=== PATIENT | male | born 1960 | race Caucasian/White ===

== ENCOUNTER 2016-11-10 10:04 | Observation (INO) | payer OTHER ==
[~2016-11-10] VITALS: Ht 167.6 cm; Wt 65.0 kg
[2016-11-10 10:08] VITALS: BP 134/75; PULSE 81; RESP 16; TEMP 98.1; O2SAT 99
[2016-11-10] MEDS ORDERED: ONDANSETRON HCL 4 MG/2 ML VIAL IV PUSH ONE ×2 (10:17→12:30)
[2016-11-10] MEDS ORDERED: PROPOFOL 200 MG/20 ML AMP IV ONE (10:17)
[2016-11-10] MEDS ORDERED: muscle relaxant (11:51)
[2016-11-10] MEDS ORDERED: ALPR1TAB3 PO (11:51)
[2016-11-10] MEDS ORDERED: MORPHINE SULFATE 4 MG/ML INJ IV PUSH ONE (12:30)
--- NOTE | 2016-11-10 12:41 | PD ---
HPI Chief Complaint: Injury Time Seen by Provider: 12:21 Travel History International Travel<30 days: No Contact w/Intl Traveler<30days: No Traveled to known affect area: No History of Present Illness HPI 55-year-old male complains of left index finger pain and swelling. Patient accidentally had the spray pain injury to the left index finger since yesterday. Patient was seen at [facility] and had an MRI done and referred to [place] to see hand surgeon. Patient states the pain is sharp pain localized to the left index finger. Patient denies any pain radiation. Patient is not sure of TD booster status. PFSH Past Medical History Tetanus Vaccination: Unknown Social History Alcohol Use: Yes Tobacco Use: Yes Allergies-Medications (Allergen,Severity, Reaction): Coded Allergies: Codeine (Verified Allergy, Severe, 11/10/16) Penicillin (Verified Allergy, Severe, 11/10/16) Reported Meds & Prescriptions Reported Meds & Active Scripts Active Reported [muscle relaxant] Alprazolam 1 Mg Tab 1 Mg PO Q6H PRN Review of Systems General / Constitutional: No: Fever Eyes: No: Visual changes HENT: No: Headaches Cardiovascular: No: Chest Pain or Discomfort Respiratory: No: Shortness of Breath Gastrointestinal: No: Abdominal Pain Genitourinary: No: Dysuria Musculoskeletal: No: Pain Skin: No Rash Neurologic: No: Weakness Psychiatric: No: Depression Endocrine: No: Polydipsia Hematologic/Lymphatic: No: Easy Bruising Physical Exam Narrative GENERAL: Well-nourished, well-developed patient. SKIN: Warm and dry. HEAD: Normocephalic. EYES: No scleral icterus. No injection or drainage. NECK: Supple, trachea midline. No JVD or lymphadenopathy. CARDIOVASCULAR: Regular rate and rhythm without murmurs, gallops, or rubs. RESPIRATORY: Breath sounds equal bilaterally. No accessory muscle use. GASTROINTESTINAL: Abdomen soft, non-tender, nondistended. MUSCULOSKELETAL: Patient has redness swelling tenderness left index finger. Limited range of motion on flexion and extension. Mild decrease in light touch sensation distal phalange left index finger. BACK: Nontender without obvious deformity. No CVA tenderness. Data Data Last Documented VS Vital Signs Date Time Temp Pulse Resp B/P Pulse Ox O2 Delivery O2 Flow Rate FiO2 11/10/16 10:08 98.1 81 16 134/75 99 Orders Electrocardiogram (11/10/16 12:26) Complete Blood Count With Diff (11/10/16 12:26) Basic Metabolic Panel (Bmp) (11/10/16 12:26) Prothrombin Time / Inr (Pt) (11/10/16 12:26) Act Partial Throm Time (Ptt) (11/10/16 12:26) Chest, Single Ap (11/10/16 12:26) Iv Access Insert/Monitor (11/10/16 12:26) Sodium Chlor 0.9% 1000 Ml Inj (Ns 1000 M (11/10/16 12:30) Morphine Inj (Morphine Inj) (11/10/16 12:30) Ondansetron Inj (Zofran Inj) (11/10/16 12:30) MDM Medical Decision Making Medical Screen Exam Complete: Yes Emergency Medical Condition: Yes Differential Diagnosis Differential diagnosis including soft tissue injury, bony injury, ligament injury. Narrative Course 55-year-old male with left index finger injury from a spray paint machine. TD booster given. Vancomycin 1 g IV. Normal saline solution 1 25 cc an hour. Morphine 2 mg IV. Zofran 4 minute gram IV. Patient will be admitted to medical service with hand surgeon consultation. Diagnosis Primary Impression: Unspecified superficial injury of left index finger, initial encounter Admitting Information Admitting Physician Requests: Admit eKvyn Quiñones MD Nov 10, 2016 12:41
[2016-11-10] MEDS ORDERED: VANCOMYCIN INJ 1,000 MG in SODIUM CHLOR 0.9% 250 ML INJ 250 ML IV ONE (12:45)
[2016-11-10] MEDS: SODIUM CHLOR 0.9% 1000 ML INJ 1,000 ML IV SCH ×2 (12:53→20:00)
[2016-11-10] MEDS ORDERED: MAGNESIUM HYDROXIDE SUSP 30 ML CUP PO PRN (13:00)
[2016-11-10] MEDS ORDERED: NALOXONE HCL 0.4 MG/ML AMP IV PRN (13:00)
[2016-11-10] MEDS ORDERED: LORazepam 2 MG/ML VIAL IV PUSH PRN (13:00)
[2016-11-10] MEDS ORDERED: ACETAMINOPHEN 325 MG TAB PO PRN (13:00)
[2016-11-10] MEDS ORDERED: HYDROmorphone HCL PF 1 MG/ML VIAL IV PUSH PRN (13:00)
[2016-11-10] MEDS ORDERED: SODIUM CHLORIDE 0.9% FLUSH 5 ML FLUSH FLUSH PRN (13:00)
[2016-11-10 13:19] LABS: APTT (PATIENT) 26.3 SEC (24.3-30.1); AUTOMATED NEUTROPHIL # 10.1 TH/MM3 (1.8-7.7); BASOPHIL % 0.2 % (0.0-2.0); EOSINOPHIL # 0.3 TH/MM3 (0-0.4); EOSINOPHIL % 2.5 % (0.0-4.0); HEMO FLAGS DIFF FINAL; INTERNATIONAL NORMALIZED RATIO 0.9 RATIO; LYMPH % 14.2 % (9.0-44.0); LYMPHOCYTE # 1.9 TH/MM3 (1.0-4.8); MEAN CELL VOLUME 87.2 FL (80.0-100.0); MEAN CORPUSCULAR HGB CONC 34.4 % (32.0-36.0); MONO % 6.7 % (0.0-8.0); NEUT % 76.4 % (16.0-70.0); PLATELET COUNT 220 TH/MM3 (150-450); RED CELL DISTRIBUTION WIDTH 12.8 % (11.6-17.2); WHITE BLOOD COUNT 13.3 TH/MM3 (4.0-11.0)
[2016-11-10 13:43] LABS: BICARBONATE 30.7 MEQ/L (21.0-32.0); POTASSIUM 3.6 MEQ/L (3.5-5.1)
--- NOTE | 2016-11-10 13:51 | RADRPT ---
EXAM DATE/TIME: 11/10/2016 13:16 [facility] COMPARISON: No previous studies available for comparison. INDICATIONS : Left hand, second digit pain after paint was injected into finger. MEDICAL HISTORY : None. SURGICAL HISTORY : None. ENCOUNTER: Initial ACUITY: 2 days PAIN SCORE: 10/10 LOCATION: Left second digit. FINDINGS: Radiopaque material is identified in the soft tissues along the palmar aspect of the distal phalanx . Bony structures are unremarkable. Bony structures are unremarkable. CONCLUSION: Radiopaque material in the soft tissues adjacent to the distal phalanx of the index finger. No acute bony abnormality. Torsten Rodriguez MD on November 10, 2016 at 13:47 Board Certified Radiologist. This report was verified electronically.
[2016-11-10 13:58] VITALS: BP 123/79; PULSE 79; RESP 18; O2SAT 99
--- NOTE | 2016-11-10 14:06 | RADRPT ---
EXAM DATE/TIME: 11/10/2016 13:21 [facility] COMPARISON: No previous studies available for comparison. INDICATIONS : Chest pain. MEDICAL HISTORY : None. SURGICAL HISTORY : None. ENCOUNTER: Initial ACUITY: 2 days PAIN SCORE: 2/10 LOCATION: Left chest FINDINGS: A single view of the chest demonstrates the lungs to be symmetrically aerated without evidence of mas s, infiltrate or effusion. The cardiomediastinal contours are unremarkable. Osseous structures are intact. CONCLUSION: No acute disease. Edward Strickland MD FACR on November 10, 2016 at 14:04 Board Certified Radiologist. This report was verified electronically.
[2016-11-10] MEDS ORDERED: Vancomycin Consult Pharmacy XX SCH (14:30)
--- NOTE | 2016-11-10 14:31 | HHI.HP ---
HPI Service [facility] Hospitalists Primary Care Physician Vicente Tariq Admission Diagnosis left index finger injury Chief Complaint: left second finger injury Travel History International Travel<30 Days: No Contact w/Intl Traveler <30 Da: No Traveled to Known Affected Are: No History of Present Illness Pt is a 55 y/o M with no chronic medical problems who presented to the ER with injury of his left second digit. Pt was accidentally injured by high pressure pain hose yesterday. Pt presented to the ER with c/o decreased ROM, warmth, and redness to right second digit. Pt was seen at [facility] earlier today. Plain film x-ray showed 7mm density int he anterior soft tissues just anterior to the distal phalanx of the second finger compatible with a foreign body in the soft tissue. No bony fractures. Dr. Lao's office (hand surgeon) was contacted, and pt was instructed to come to the [facility] ER for admission. Review of Systems Constitutional: DENIES: Diaphoretic episodes, Fatigue, Fever, Weight gain, Weight loss, Chills, Dizziness, Change in appetite, Night Sweats Endocrine: DENIES: Heat/cold intolerance, Polydipsia, Polyuria, Polyphagia Eyes: DENIES: Blurred vision, Diplopia, Eye inflammation, Eye pain, Vision loss , Photosensitivity, Double Vision Ears, nose, mouth, throat: DENIES: Tinnitus, Hearing loss, Vertigo, Nasal discharge, Oral lesions, Throat pain, Hoarseness, Ear Pain, Running Nose, Epistaxis, Sinus Pain, Toothache, Odynophagia Respiratory: DENIES: Apneas, Cough, Snoring, Wheezing, Hemoptysis, Sputum production, Shortness of breath Cardiovascular: DENIES: Chest pain, Palpitations, Syncope, Dyspnea on Exertion , PND, Lower Extremity Edema, Orthopnea, Claudication Gastrointestinal: DENIES: Abdominal pain, Black stools, Bloody stools, BRB per rectum, Constipation, Diarrhea, GERD, Nausea, Reflux, Vomiting, Difficulty Swallowing, Anorexia Genitourinary: DENIES: Urinary frequency, Urinary incontinence, Urgency, Hematuria, Dysuria, Nocturia Musculoskeletal: COMPLAINS OF: Joint pain, DENIES: Muscle aches, Stiffness, Joint Swelling, Back pain, Neck pain Integumentary: DENIES: Abnormal pigmentation, Nail changes, Pruritus, Rash Hematologic/lymphatic: DENIES: Bruising, Lymphadenopathy Immunologic/allergic: DENIES: Eczema, Urticaria Neurologic: DENIES: Abnormal gait, Headache, Localized weakness, Paresthesias, Seizures, Speech Problems, Tremor, Poor Balance Psychiatric: DENIES: Anxiety, Confusion, Mood changes, Depression, Hallucinations, Agitation, Suicidal Ideation, Homicidal Ideation, Delusions, History of Bipolar, History of Schizophrenia Past Family Social History Past Medical History 1) Cervical disc disease - pt is currently undergoing w/u with his PCP 2) migraines Past Surgical History None Reported Medications Reported Meds & Active Scripts Active Reported [muscle relaxant] Alprazolam 1 Mg Tab 1 Mg PO Q6H PRN, prescribed today (11/10/16) Allergies: Coded Allergies: Codeine (Verified Allergy, Severe, 11/10/16) Penicillin (Verified Allergy, Severe, 11/10/16) Family History mother, , age 82 father, alive, age 85, unknown medical problems brother with ?lymphatic cancer Social History - denies tobacco, quit 1991 - occasional etoh - uses marijuana daily Physical Exam Vital Signs Vital Signs Date Time Temp Pulse Resp B/P Pulse Ox O2 Delivery O2 Flow Rate FiO2 11/10/16 13:58 79 18 123/79 99 Room Air 11/10/16 12:55 18 97 Room Air 11/10/16 10:08 98.1 81 16 134/75 99 Physical Exam GENERAL: This is a well-nourished, well-developed patient, in no apparent distress. SKIN: No rashes, ecchymoses or lesions. Cool and dry. HEAD: Atraumatic. Normocephalic. No temporal or scalp tenderness. EYES: Pupils equal round and reactive. Extraocular motions intact. No scleral icterus. No injection or drainage. ENT: Nose without bleeding, purulent drainage or septal hematoma. Throat without erythema, tonsillar hypertrophy or exudate. Uvula midline. Airway patent. NECK: Trachea midline. No JVD or lymphadenopathy. Supple, nontender, no meningeal signs. CARDIOVASCULAR: Regular rate and rhythm without murmurs, gallops, or rubs. RESPIRATORY: Clear to auscultation. Breath sounds equal bilaterally. No wheezes , rales, or rhonchi. GASTROINTESTINAL: Abdomen soft, non-tender, nondistended. No hepato-splenomegaly , or palpable masses. No guarding. MUSCULOSKELETAL: edema and warmth with erythema of left index finger point of entry from high pressure paint noted on the flexor fat pad - distal phalanx involved finger NEUROLOGICAL: Awake and alert. Cranial nerves II through XII intact. Motor and sensory grossly within normal limits. Five out of 5 muscle strength in all muscle groups. Normal speech. Laboratory Laboratory Tests Test 11/10/16 12:58 White Blood Count 13.3 Red Blood Count 4.70 Hemoglobin 14.1 Hematocrit 41.0 Mean Corpuscular Volume 87.2 Mean Corpuscular Hemoglobin 30.0 Mean Corpuscular Hemoglobin 34.4 Concent Red Cell Distribution Width 12.8 Platelet Count 220 Mean Platelet Volume 9.7 Neutrophils (%) (Auto) 76.4 Lymphocytes (%) (Auto) 14.2 Monocytes (%) (Auto) 6.7 Eosinophils (%) (Auto) 2.5 Basophils (%) (Auto) 0.2 Neutrophils # (Auto) 10.1 Lymphocytes # (Auto) 1.9 Monocytes # (Auto) 0.9 Eosinophils # (Auto) 0.3 Basophils # (Auto) 0.0 CBC Comment DIFF FINAL Differential Comment Prothrombin Time 10.0 Prothromb Time International 0.9 Ratio Activated Partial 26.3 Thromboplast Time Sodium Level 139 Potassium Level 3.6 Chloride Level 103 Carbon Dioxide Level 30.7 Anion Gap 5 Blood Urea Nitrogen 12 Creatinine 0.88 Estimat Glomerular Filtration 91 Rate Random Glucose 92 Calcium Level 9.0 Result Diagram: 11/10/16 1258 11/10/16 1258 Imaging Last Impressions Finger X-Ray 11/10/16 1236 Signed Impressions: Service Date/Time: Thursday, November 10, 2016 13:16 - CONCLUSION: Radiopaque material in the soft tissues adjacent to the distal phalanx of the index finger. No acute bony abnormality. Torsten Rodriguez MD Chest X-Ray 11/10/16 1226 Signed Impressions: Service Date/Time: Thursday, November 10, 2016 13:21 - CONCLUSION: No acute disease. Edward Strickland MD FACR Septic Shock Reassessment Heart: Regular rate and rhythm Lungs: Clear Skin: Warm Peripheral Pulses: Bounding Right Radial Bounding Left Radial Bounding Right Popliteal Bounding Left Popliteal Bounding Right Dorsalis Pedis Bounding Left Dorsalis Pedis Bounding Right Posterior Tibial Bounding Left Posterior Tibial Capillary Refill: Brisk Assessment and Plan Problem List: (1) Unspecified superficial injury of left index finger, initial encounter Status: Acute Plan: - restained foreign body noted on x-ray - consult hand surgeon, Dr. Lao for likely wound exploration with I&D - continue vancomycin - repeat CBC in AM - norco/Dilaudid prn pain Amanuel Walsh DO Nov 10, 2016 14:31
[2016-11-10] MEDS: ONDANSETRON HCL 4 MG/2 ML VIAL IVP PRN ×2 (14:39→20:56)
[2016-11-10 15:13] VITALS: BP 122/74; PULSE 85; RESP 18; TEMP 98.2; O2SAT 98
[2016-11-10] MEDS ORDERED: fentaNYL CITRATE 250 MCG/5 ML AMP ONE ×2 (16:06→19:27)
[2016-11-10] MEDS ORDERED: MIDAZOLAM HCL 2 MG/2 ML VIAL ONE ×2 (16:06→19:27)
[2016-11-10] MEDS ORDERED: FAMOTIDINE 20 MG/2 ML VIAL ONE (16:06)
--- NOTE | 2016-11-10 16:48 | MB ---
cc: ALINA MANRIQUE MD DATE OF CONSULTATION: 11/10/2016. REASON FOR CONSULTATION: High pressure paint injection injury, left index finger. HISTORY OF PRESENT ILLNESS: The patient is a 55-year-old right-hand dominant male presenting with complaints of left index finger pain and swelling since yesterday. The patient states accidentally he had a spray paint injury to the left index finger yesterday. The patient was seen at [facility] and he had x-rays and MRI. As the patient had worsening symptoms, he presented to the emergency room. The patient states it is a latex water-based paint with several thousand PSI. He also complains of numbness over the left index finger pulp. He denies any fever. He complains of constant throbbing pain. The patient also stated unable to sleep because of the pain. PAST MEDICAL HISTORY / PAST SURGICAL HISTORY: Reviewed. PHYSICAL EXAMINATION: The patient is in a lot of pain, otherwise alert and oriented x3. Examination of left index finger reveals two puncture like wounds over the pulp region of the index finger. There is evidence of swelling involving the whole of the index finger. There is also evidence of erythema extending almost to the proximal phalanx region. There is also evidence of swelling around the nail fold region. Exquisite tenderness noted over the pulp region. Decreased sensation noted over the pulp. No drainage noted. Range of motion of the index finger is limited and painful. LABORATORY DATA: His lab work was reviewed. IMAGING STUDIES: X-rays of the left index finger were reviewed and show a radiopaque foreign body material within the volar pulp soft tissues. There is also evidence of soft tissue swelling involving the index finger extending all the way to the proximal phalanx region. ASSESSMENT: A 55-year-old male with a high pressure paint injection injury to the left index finger one day PLAN: The plan will be to keep the patient NPO, take him emergently for surgery which would entail exploration, decompression and debridement of the left index finger. Alina Manrique MD SE/MIHAI /3:50 PM /4:42 PM [facility]
[2016-11-10] MEDS ORDERED: LIDOCAINE HCL 2% 50 ML VIAL ONE (17:02)
[2016-11-10] MEDS ORDERED: MUPIROCIN 2% OINT 22 GM TUBE ONE (17:02)
[2016-11-10] MEDS ORDERED: BUPIVACAINE HCL PF 0.5% 30 ML VIAL ONE (17:02)
[2016-11-10] MEDS ORDERED: LIDOCAINE HCL 2% 50 ML VIAL INFIL ONE (17:42)
[2016-11-10] MEDS ORDERED: MUPIROCIN 2% OINT 22 GM TUBE TOPICAL ONE (17:42)
[2016-11-10] MEDS ORDERED: NEOMYCIN/POLYMYXIN 1 ML G.U. IRRIGANT IR ONE (17:42)
[2016-11-10] MEDS ORDERED: BUPIVACAINE HCL PF 0.5% 30 ML VIAL INFIL ONE (17:42)
--- NOTE | 2016-11-10 19:12 | PD.OP ---
Operative Report Preoperative Diagnosis: (1) High-pressure injection injury of finger of left hand Postoperative Diagnosis: (1) High-pressure injection injury of finger of left hand High-pressure paint injection injury left index finger Procedure: exploration, wash, excisional debridement and decompression left index finger Anesthesia: general Surgeon: John Lao Continuous Washer Operator(s): ania Operation and Findings: latex based paint within the pulp left index finger extensive involvement of the pulp tissue with paint John Lao MD Nov 10, 2016 19:12
[2016-11-10] MEDS ORDERED: DO NOT ADM ANY ANTICOAGULANT DRUGS XX PRN (19:15)
[2016-11-10] MEDS ORDERED: *morphine SULFATE 8 MG/ML PERIprocedure ONLY ONE ×2 (19:35→20:08)
[2016-11-10 20:00] VITALS: BP 117/59; PULSE 69; RESP 17; TEMP 96.4; O2SAT 99
[2016-11-10] MEDS: SODIUM CHLORIDE 0.9% FLUSH 5 ML FLUSH FLUSH SCH (20:53)
[2016-11-10 21:00] VITALS: BP 117/59; PULSE 69; RESP 17; TEMP 96.4; O2SAT 99
[2016-11-10] MEDS ORDERED: VANCOMYCIN INJ 1,000 MG in SODIUM CHLOR 0.9% 250 ML INJ 250 ML IV SCH (23:00)
[2016-11-11] VITALS: BP 103/58; PULSE 73; RESP 16; TEMP 96.9; O2SAT 99
[2016-11-11] MEDS: VANCOMYCIN 1,000 MG/NS 250 ML IV SCH ×4 (01:20→11:53)
[2016-11-11 04:00] VITALS: BP 97/58; PULSE 78; RESP 16; TEMP 97.7; O2SAT 100
[2016-11-11] MEDS: ALPRAZolam 1 MG TAB PO PRN ×2 (05:56→18:49)
[2016-11-11] MEDS: SODIUM CHLOR 0.9% 1000 ML INJ 1,000 ML IV SCH ×3 (06:30→20:04)
[2016-11-11 08:00] VITALS: BP 104/60; PULSE 95; RESP 18; TEMP 97; O2SAT 100
[2016-11-11] MEDS: SODIUM CHLORIDE 0.9% FLUSH 5 ML FLUSH FLUSH SCH ×2 (08:37→20:04)
[2016-11-11 08:50] LABS: BICARBONATE 27.3 MEQ/L (21.0-32.0); POTASSIUM 3.5 MEQ/L (3.5-5.1)
[2016-11-11 08:59] LABS: AUTOMATED NEUTROPHIL # 6.4 TH/MM3 (1.8-7.7); BASOPHIL % 0.2 % (0.0-2.0); EOSINOPHIL # 0.1 TH/MM3 (0-0.4); EOSINOPHIL % 1.1 % (0.0-4.0); HEMATOCRIT 34.9 % (39.0-51.0); HEMO FLAGS DIFF FINAL; LYMPH % 18.3 % (9.0-44.0); LYMPHOCYTE # 1.6 TH/MM3 (1.0-4.8); MEAN CELL VOLUME 88.6 FL (80.0-100.0); MEAN CORPUSCULAR HEMOGLOBIN 29.6 PG (27.0-34.0); MEAN CORPUSCULAR HGB CONC 33.4 % (32.0-36.0); MONO % 7.7 % (0.0-8.0); NEUT % 72.7 % (16.0-70.0); PLATELET COUNT 150 TH/MM3 (150-450); RED BLOOD COUNT 3.94 MIL/MM3 (4.50-5.90); RED CELL DISTRIBUTION WIDTH 12.9 % (11.6-17.2); WHITE BLOOD COUNT 8.8 TH/MM3 (4.0-11.0)
[2016-11-11] MEDS: ACETAMINOPHEN/HYDROcodone 325 MG/5 MG TAB PO PRN ×2 (10:38→10:42)
--- NOTE | 2016-11-11 11:31 | HHI.PR ---
Subjective Remarks No new complaints. Pt is anxious to go home. He had been refusing IV replacement after his fell out last night but pt will need to stay for a few more days for continued IV antibiotics per hand surgery Pt is agreeable. Objective Vitals Vital Signs Date Time Temp Pulse Resp B/P Pulse Ox O2 Delivery O2 Flow Rate FiO2 11/11/16 08:00 97.0 95 18 104/60 100 11/11/16 04:00 97.7 78 16 97/58 100 11/11/16 00:00 96.9 73 16 103/58 99 11/10/16 21:00 96.4 69 17 117/59 99 11/10/16 20:15 97.9 81 15 119/67 98 Nasal Cannula 3 11/10/16 20:00 80 14 108/68 99 Nasal Cannula 3 11/10/16 19:45 80 18 114/70 99 Nasal Cannula 3 11/10/16 19:30 84 14 115/75 94 Nasal Cannula 3 11/10/16 19:15 82 15 116/79 95 Nasal Cannula 3 11/10/16 19:13 97.7 84 20 119/73 95 Nasal Cannula 3 11/10/16 15:13 98.2 85 18 122/74 98 11/10/16 13:58 79 18 123/79 99 Room Air 11/10/16 12:55 18 97 Room Air 11/10/16 11/10/16 11/11/16 15:00 23:00 07:00 Intake Total 1280 ml 1720 ml Output Total 5 ml 750 ml Balance 1275 ml 970 ml Intake Oral 480 ml 720 ml IV Total 100 ml 1000 ml Other 700 ml Output Urine Total 0 ml 750 ml Estimated Blood Loss 5 ml Other 0 ml Result Diagram: 11/11/16 0739 11/11/16 0739 Other Results Laboratory Tests Test 11/10/16 11/11/16 12:58 07:39 White Blood Count 13.3 TH/MM3 8.8 TH/MM3 Red Blood Count 4.70 MIL/MM3 3.94 MIL/MM3 Hemoglobin 14.1 GM/DL 11.6 GM/DL Hematocrit 41.0 % 34.9 % Mean Corpuscular Volume 87.2 FL 88.6 FL Mean Corpuscular Hemoglobin 30.0 PG 29.6 PG Mean Corpuscular Hemoglobin 34.4 % 33.4 % Concent Red Cell Distribution Width 12.8 % 12.9 % Platelet Count 220 TH/MM3 150 TH/MM3 Mean Platelet Volume 9.7 FL 10.0 FL Neutrophils (%) (Auto) 76.4 % 72.7 % Lymphocytes (%) (Auto) 14.2 % 18.3 % Monocytes (%) (Auto) 6.7 % 7.7 % Eosinophils (%) (Auto) 2.5 % 1.1 % Basophils (%) (Auto) 0.2 % 0.2 % Neutrophils # (Auto) 10.1 TH/MM3 6.4 TH/MM3 Lymphocytes # (Auto) 1.9 TH/MM3 1.6 TH/MM3 Monocytes # (Auto) 0.9 TH/MM3 0.7 TH/MM3 Eosinophils # (Auto) 0.3 TH/MM3 0.1 TH/MM3 Basophils # (Auto) 0.0 TH/MM3 0.0 TH/MM3 CBC Comment DIFF FINAL DIFF FINAL Differential Comment Prothrombin Time 10.0 SEC Prothromb Time International 0.9 RATIO Ratio Activated Partial 26.3 SEC Thromboplast Time Sodium Level 139 MEQ/L 142 MEQ/L Potassium Level 3.6 MEQ/L 3.5 MEQ/L Chloride Level 103 MEQ/L 107 MEQ/L Carbon Dioxide Level 30.7 MEQ/L 27.3 MEQ/L Anion Gap 5 MEQ/L 8 MEQ/L Blood Urea Nitrogen 12 MG/DL 9 MG/DL Creatinine 0.88 MG/DL 0.81 MG/DL Estimat Glomerular Filtration 91 ML/MIN 100 ML/MIN Rate Random Glucose 92 MG/DL 94 MG/DL Calcium Level 9.0 MG/DL 7.8 MG/DL Magnesium Level 2.0 MG/DL Imaging Last Impressions Finger X-Ray 11/10/16 1236 Signed Impressions: Service Date/Time: Thursday, November 10, 2016 13:16 - CONCLUSION: Radiopaque material in the soft tissues adjacent to the distal phalanx of the index finger. No acute bony abnormality. Torsten Rodriguez MD Chest X-Ray 11/10/16 1226 Signed Impressions: Service Date/Time: Thursday, November 10, 2016 13:21 - CONCLUSION: No acute disease. Edward Strickland MD FACR Objective Remarks General: NAD, AAOx3 Chest: CTA Cardiac: Regular Abd: +BS, soft ND/NT Ext: Left hand bandages are c/d/i Procedures Exploration, wash, excisional debridement and decompression left index finger on 11/10/16 A/P Problem List: (1) Unspecified superficial injury of left index finger, initial encounter Status: Acute Plan: - Pt admitted with a retrained foreign body noted on x-ray in his left index finger - Pt underwent exploration, wash, excisional debridement and decompression left index finger on 11/10/[address] Lao. Pt was found to have latex based paint within the pulp left index finger and extensive involvement of the pulp tissue with paint - Pt recommended to continue IV Vancomycin for the next few days by Hand Surgery - Holly/Dilaudid prn pain Assessment and Plan Patient examined. Assessment and plan formulated with Lilia Rivera PA-C. I agree with the above. Lilia Rivera Nov 11, 2016 11:30 Amanuel Walsh DO Nov 17, 2016 20:42
[2016-11-11] MEDS ORDERED: HYDROmorphone HCL PF 1 MG/ML VIAL IV PUSH PRN (11:45)
[2016-11-11] MEDS: CIPROFLOXACIN 400 MG PREMIX 200 ML IV SCH (11:49)
[2016-11-11] MEDS: ONDANSETRON HCL 4 MG/2 ML VIAL IVP PRN (11:50)
[2016-11-11 12:00] VITALS: BP 114/55; PULSE 80; RESP 16; TEMP 97.8; O2SAT 99
--- NOTE | 2016-11-11 12:52 | HHI.PR ---
Subjective Remarks pain better complaint with limb elevation Objective Vital Signs Date Time Temp Pulse Resp B/P Pulse Ox O2 Delivery O2 Flow Rate FiO2 11/11/16 12:00 97.8 80 16 114/55 99 11/11/16 08:00 97.0 95 18 104/60 100 11/11/16 04:00 97.7 78 16 97/58 100 11/11/16 00:00 96.9 73 16 103/58 99 11/10/16 21:00 96.4 69 17 117/59 99 11/10/16 20:15 97.9 81 15 119/67 98 Nasal Cannula 3 11/10/16 20:00 80 14 108/68 99 Nasal Cannula 3 11/10/16 19:45 80 18 114/70 99 Nasal Cannula 3 11/10/16 19:30 84 14 115/75 94 Nasal Cannula 3 11/10/16 19:15 82 15 116/79 95 Nasal Cannula 3 11/10/16 19:13 97.7 84 20 119/73 95 Nasal Cannula 3 11/10/16 15:13 98.2 85 18 122/74 98 11/10/16 13:58 79 18 123/79 99 Room Air 11/10/16 12:55 18 97 Room Air I/O 11/10/16 11/10/16 11/10/16 11/11/16 11/11/16 11/11/16 07:00 15:00 23:00 07:00 15:00 23:00 Intake Total 1280 ml 1720 ml Output Total 5 ml 750 ml Balance 1275 ml 970 ml Intake Oral 480 ml 720 ml IV Total 100 ml 1000 ml Other 700 ml Output Urine Total 0 ml 750 ml Estimated Blood Loss 5 ml Other 0 ml left index finger: decreased swelling, packing in place decreased capillary refill over the pulp intact sensation no tenderness noted over the flexor tendon sheath region range of motion is limited and painful Result Diagram: 11/11/16 0739 11/11/16 0739 Assessment and Plan Assessment and Plan 55 year old male s/p debridement and decompression left index finger for high pressure paint injection injury pod 1 plan: packing changed dry dressing applied range of motion exercises limb elevation continue with iv antibiotics hand surgery will follow. John Lao MD Nov 11, 2016 12:52
[2016-11-11 16:00] VITALS: BP 121/73; PULSE 76; RESP 16; TEMP 97; O2SAT 100
[2016-11-11 20:00] VITALS: BP 107/57; PULSE 75; RESP 17; TEMP 97.8; O2SAT 99
[2016-11-11] MEDS: ACETAMIN 325 MG/BUTALBITAL 50 MG/CAFFEINE 40 MG TAB PO PRN (20:03)
[2016-11-12] VITALS: BP 98/51; PULSE 70; RESP 16; TEMP 97.3; O2SAT 98
[2016-11-12] MEDS: CIPROFLOXACIN 400 MG PREMIX 200 ML IV SCH ×2 (00:03→10:17)
[2016-11-12] MEDS: VANCOMYCIN 1,000 MG/NS 250 ML IV SCH ×2 (00:03)
[2016-11-12] MEDS ORDERED: PHARMACY ORDERED LAB XX ONE (00:45)
[2016-11-12 04:00] VITALS: BP 93/54; PULSE 73; RESP 16; TEMP 97.1; O2SAT 98
[2016-11-12] MEDS: ACETAMIN 325 MG/BUTALBITAL 50 MG/CAFFEINE 40 MG TAB PO PRN ×2 (04:01→13:43)
[2016-11-12] MEDS: SODIUM CHLOR 0.9% 1000 ML INJ 1,000 ML IV SCH ×2 (04:03→13:47)
[2016-11-12 08:00] VITALS: BP 133/77; PULSE 82; RESP 18; TEMP 97.4; O2SAT 97
[2016-11-12 08:27] LABS: AUTOMATED NEUTROPHIL # 5.2 TH/MM3 (1.8-7.7); BASOPHIL % 0.2 % (0.0-2.0); EOSINOPHIL # 0.4 TH/MM3 (0-0.4); EOSINOPHIL % 4.4 % (0.0-4.0); HEMATOCRIT 34.7 % (39.0-51.0); HEMO FLAGS DIFF FINAL; LYMPH % 25.2 % (9.0-44.0); MEAN CELL VOLUME 87.5 FL (80.0-100.0); MEAN CORPUSCULAR HEMOGLOBIN 29.9 PG (27.0-34.0); MEAN CORPUSCULAR HGB CONC 34.2 % (32.0-36.0); MONO % 6.2 % (0.0-8.0); PLATELET COUNT 156 TH/MM3 (150-450); RED BLOOD COUNT 3.97 MIL/MM3 (4.50-5.90); WHITE BLOOD COUNT 8.1 TH/MM3 (4.0-11.0)
[2016-11-12 08:30] VITALS: O2SAT 99
[2016-11-12 08:45] LABS: BICARBONATE 28.7 MEQ/L (21.0-32.0); MAGNESIUM 1.9 MG/DL (1.5-2.5); POTASSIUM 3.4 MEQ/L (3.5-5.1)
[2016-11-12] MEDS: ALPRAZolam 1 MG TAB PO PRN (08:48)
[2016-11-12] MEDS: SODIUM CHLORIDE 0.9% FLUSH 5 ML FLUSH FLUSH SCH (08:50)
[2016-11-12] MEDS ORDERED: VANCOMYCIN INJ 1,250 MG in SODIUM CHLOR 0.9% 250 ML INJ 250 ML IV SCH (11:00)
--- NOTE | 2016-11-12 11:06 | HHI.PR ---
Subjective Remarks No new complaints. Pt is afebrile. Vital signs are stable. Objective Vitals Vital Signs Date Time Temp Pulse Resp B/P Pulse Ox O2 Delivery O2 Flow Rate FiO2 11/12/16 08:00 97.4 82 18 133/77 97 11/12/16 04:00 97.1 73 16 93/54 98 11/12/16 00:00 97.3 70 16 98/51 98 11/11/16 20:00 97.8 75 17 107/57 99 11/11/16 16:00 97.0 76 16 121/73 100 11/11/16 12:00 97.8 80 16 114/55 99 11/11/16 11/11/16 11/12/16 15:00 23:00 07:00 Intake Total 720 ml 1070 ml 480 ml Output Total 400 ml Balance 720 ml 1070 ml 80 ml Intake Oral 720 ml 1070 ml 480 ml Output Urine Total 400 ml # Voids 4 3 2 # Bowel Movements 0 Result Diagram: 11/12/16 0800 11/12/16 0800 Other Results Laboratory Tests Test 11/10/16 11/11/16 11/12/16 11/12/16 12:58 07:39 00:20 08:00 White Blood Count 13.3 TH/MM3 8.8 TH/MM3 8.1 TH/MM3 Red Blood Count 4.70 MIL/MM3 3.94 MIL/MM3 3.97 MIL/MM3 Hemoglobin 14.1 GM/DL 11.6 GM/DL 11.9 GM/DL Hematocrit 41.0 % 34.9 % 34.7 % Mean Corpuscular Volume 87.2 FL 88.6 FL 87.5 FL Mean Corpuscular Hemoglobin 30.0 PG 29.6 PG 29.9 PG Mean Corpuscular Hemoglobin 34.4 % 33.4 % 34.2 % Concent Red Cell Distribution Width 12.8 % 12.9 % 13.0 % Platelet Count 220 TH/MM3 150 TH/MM3 156 TH/MM3 Mean Platelet Volume 9.7 FL 10.0 FL 9.7 FL Neutrophils (%) (Auto) 76.4 % 72.7 % 64.0 % Lymphocytes (%) (Auto) 14.2 % 18.3 % 25.2 % Monocytes (%) (Auto) 6.7 % 7.7 % 6.2 % Eosinophils (%) (Auto) 2.5 % 1.1 % 4.4 % Basophils (%) (Auto) 0.2 % 0.2 % 0.2 % Neutrophils # (Auto) 10.1 TH/MM3 6.4 TH/MM3 5.2 TH/MM3 Lymphocytes # (Auto) 1.9 TH/MM3 1.6 TH/MM3 2.0 TH/MM3 Monocytes # (Auto) 0.9 TH/MM3 0.7 TH/MM3 0.5 TH/MM3 Eosinophils # (Auto) 0.3 TH/MM3 0.1 TH/MM3 0.4 TH/MM3 Basophils # (Auto) 0.0 TH/MM3 0.0 TH/MM3 0.0 TH/MM3 CBC Comment DIFF FINAL DIFF FINAL DIFF FINAL Differential Comment Prothrombin Time 10.0 SEC Prothromb Time International 0.9 RATIO Ratio Activated Partial 26.3 SEC Thromboplast Time Sodium Level 139 MEQ/L 142 MEQ/L 147 MEQ/L Potassium Level 3.6 MEQ/L 3.5 MEQ/L 3.4 MEQ/L Chloride Level 103 MEQ/L 107 MEQ/L 110 MEQ/L Carbon Dioxide Level 30.7 MEQ/L 27.3 MEQ/L 28.7 MEQ/L Anion Gap 5 MEQ/L 8 MEQ/L 8 MEQ/L Blood Urea Nitrogen 12 MG/DL 9 MG/DL 8 MG/DL Creatinine 0.88 MG/DL 0.81 MG/DL 0.95 MG/DL Estimat Glomerular Filtration 91 ML/MIN 100 ML/MIN 83 ML/MIN Rate Random Glucose 92 MG/DL 94 MG/DL 113 MG/DL Calcium Level 9.0 MG/DL 7.8 MG/DL 7.9 MG/DL Magnesium Level 2.0 MG/DL 1.9 MG/DL Vancomycin Level Trough 7.5 MCG/ML Imaging Last Impressions Finger X-Ray 11/10/16 1236 Signed Impressions: Service Date/Time: Thursday, November 10, 2016 13:16 - CONCLUSION: Radiopaque material in the soft tissues adjacent to the distal phalanx of the index finger. No acute bony abnormality. Torsten Rodriguez MD Chest X-Ray 11/10/16 1226 Signed Impressions: Service Date/Time: Thursday, November 10, 2016 13:21 - CONCLUSION: No acute disease. Edward Strickland MD FACR Objective Remarks General: NAD, AAOx3 Chest: CTA Cardiac: Regular Abd: +BS, soft ND/NT Ext: Left hand bandages are c/d/i Procedures Exploration, wash, excisional debridement and decompression left index finger on 11/10/16 A/P Problem List: (1) Unspecified superficial injury of left index finger, initial encounter Status: Acute Plan: - Pt admitted with a retrained foreign body noted on x-ray in his left index finger - Pt underwent exploration, wash, excisional debridement and decompression left index finger on 11/10/[address] Lao. Pt was found to have latex based paint within the pulp left index finger and extensive involvement of the pulp tissue with paint - Pt recommended to continue IV Vancomycin for the next few days by Hand Surgery - Thomson/Dilaudid prn pain - Dressing changes per hand surgery Assessment and Plan Patient examined. Assessment and plan formulated with Lilia Rivera PA-C. I agree with the above. Case d/w Hand Surgeon, Dr. Lao, (11/12/16) Pt cleared for discharge to home today. Pt to f/u with Dr. Lao in 2-3 days clindamycin 300mg TID x 7d ciprofloxin 500mg BID x 7d Lilia Rivera Nov 12, 2016 11:06 Amanuel Walsh DO Nov 12, 2016 14:30
[2016-11-12 12:00] VITALS: BP 144/75; PULSE 78; RESP 16; TEMP 97.2; O2SAT 100
[2016-11-12] MEDS: ACETAMINOPHEN/HYDROcodone 325 MG/5 MG TAB PO PRN (13:44)
--- NOTE | 2016-11-12 14:19 | HHI.PR ---
Subjective Remarks pain better complaint with limb elevation able to make almost a fist Objective Vital Signs Date Time Temp Pulse Resp B/P Pulse Ox O2 Delivery O2 Flow Rate FiO2 11/12/16 12:00 97.2 78 16 144/75 100 11/12/16 08:30 99 21 11/12/16 08:00 97.4 82 18 133/77 97 11/12/16 04:00 97.1 73 16 93/54 98 11/12/16 00:00 97.3 70 16 98/51 98 11/11/16 20:00 97.8 75 17 107/57 99 11/11/16 16:00 97.0 76 16 121/73 100 I/O 11/11/16 11/11/16 11/11/16 11/12/16 11/12/16 11/12/16 07:00 15:00 23:00 07:00 15:00 23:00 Intake Total 1720 ml 720 ml 1070 ml 480 ml Output Total 750 ml 400 ml Balance 970 ml 720 ml 1070 ml 80 ml Intake Oral 720 ml 720 ml 1070 ml 480 ml IV Total 1000 ml Output Urine Total 750 ml 400 ml # Voids 4 3 2 # Bowel Movements 0 left index finger: packing in place no drainage terminal degrees of flexion is limited slightly decreased sensation over the tip intact capillary refill Result Diagram: 11/12/16 0800 11/12/16 0800 Assessment and Plan Assessment and Plan 55 year old male s/p debridement and decompression left index finger for high pressure paint injection injury pod 2 plan: dry dressing applied range of motion exercises limb elevation can be discharged home on po antibiotics follow up in office on sunday11/15/16, call [phone] for appointment John Lao MD Nov 12, 2016 14:19
[2016-11-12] MEDS ORDERED: CIPR500T2 PO (14:27)
[2016-11-12] MEDS ORDERED: HYDR-3516 PO (14:27)
[2016-11-12] MEDS ORDERED: CLIN1CAP6 PO (14:27)
--- NOTE | 2016-11-12 14:31 | HHI.DCPOC ---
Discharge Care Plan Diagnosis: (1) Unspecified superficial injury of left index finger, initial encounter (2) High-pressure injection injury of finger of left hand Goals to Promote Your Health * To prevent worsening of your condition and complications * To maintain your health at the optimal level Directions to Meet Your Goals Take your medications as prescribed Follow your dietary instruction Follow activity as directed Keep your appointments as scheduled Take your immunizations and boosters as scheduled If your symptoms worsen call your PCP, if no PCP go to Urgent Care Center or Emergency Room Smoking is Dangerous to Your Health. Avoid second hand smoke Call the 24-hour hour crisis hotline for domestic abuse at Amanuel Walsh DO Nov 12, 2016 14:31
--- NOTE | 2016-11-13 23:48 | EKG ---
Date Performed: 11/10/2016 Time Performed: 12:45:15 PTAGE: 55 years EKG: Sinus rhythm NORMAL ECG NO PREVIOUS TRACING DOCTOR: Walt Bower Interpretating Date/Time 11/13/2016 23:46:00
[2016-11-14] MEDS ORDERED: PHARMACY ORDERED LAB XX ONE (10:45)
--- NOTE | 2016-11-15 10:45 | MP ---
cc: JOHN MANRIQUE MD DATE OF SURGERY: 11/10/2016 PREOPERATIVE DIAGNOSIS High pressure paint injection injury, left index finger. POSTOPERATIVE DIAGNOSIS High pressure paint injection injury, left index finger. PROCEDURE Exploration, wash, excisional debridement and decompression, left index finger. SURGEON Dr. Manrique ANESTHESIA General. ESTIMATED BLOOD LOSS 5 cc. TOURNIQUET TIME 54 minutes at 250 mmHg. CONDITION The patient was recovered and sent to Recovery in stable condition. INDICATION The patient is a 55-year-old right-hand dominant male who presented to the ED with complaints of injury to the left index finger. The patient states he was using a high pressure latex-based paint and accidentally injured his left index finger in the process. This happened yesterday. The patient was seen at the outside hospital. He had an x-ray and MRI and because of the worsening pain he ended up at [facility]. The patient complains of pain and numbness involving the left index finger pulp. He also complains of throbbing constant pain with swelling and redness. Denies any fever. On examination he had two puncture wounds over the volar pulp of the finger with swelling extending to the middle phalanx region distally. Exquisite tenderness noted over the pulp region. Decreased sensation noted over the pulp. X-ray showed foreign body radiopaque material within the pulp tissues of the index finger. The patient was consented for exploration, debridement and decompression of the left index finger. He was explained the risks and benefits and need of an emergent procedure. DETAILS OF PROCEDURE The patient was brought to the operating room and under general anesthesia the left upper extremity was thoroughly prepped and draped. The incision site was marked over the pulp extending across the distal interphalangeal joint over the distal phalanx region in a zig-zag fashion. After limb exsanguination the tourniquet was inflated to 250 mmHg. The incision was initially made in the pulp region and skin flaps were elevated. Extensive paint material was noted within the pulp tissue. Hence the decision was made to extend the incision proximally and this was extended across the DIP joint in a zig-zag fashion. Skin flaps were elevated exposing the soft tissue. There was extensive paint material within the pulp tissue extending to the volar surface of the distal phalanx proximally. This was extending up to the DIP joint. The flexor tendon sheath was opened and no evidence of paint material was noted. Initially thorough wash was given. A liter of normal saline was used to remove as much of the paint as possible but most of the paint was stuck to the soft tissues of the pulp and so decision was made to proceed with excisional debridement. Excisional debridement of paint tissue was carried out using micro scissors and a micro instruments. The paint material was debrided off the digital nerve and artery. The whole neurovascular bundle on the ulnar aspect was encased with paint material. This was gently teased off from the distal neurovascular bundle. After extensive debridement attention was then directed to the pulp skin. The dermis was completely laced with paint. The paint was debrided. In the process he had a wound over the pulp measuring about a few millimeters which was left open. Thorough wash was given and packing of the wounds was carried out. The wound was loosely approximated using 4-0 nylon in a horizontal mattress interrupted fashion. Before closure the tourniquet was deflated. Total tourniquet time was 54 minutes. He had good distal circulation after the release of the tourniquet. Bleeding points were controlled with bipolar cautery. The patient did have good capillary refill in the pulp region. Xeroform and bacitracin dressing was applied. A bulky hand dressing was applied which was held in place by [place]. He was recovered and sent to Recovery in stable condition. Will change the packing tomorrow. The patient was also explained the need of possible repeat procedures including amputation if there is any worsening. John Manrique MD SE/MYNOR /7:15 PM /10:22 AM GOLDIE
[2017-04-04] MEDS ORDERED: CALC250T PO (15:31)
[2017-04-04] MEDS ORDERED: BUTA1CAP5 PO (15:31)
[2017-04-04] MEDS ORDERED: TIZA4CAP3 PO (15:32)
[2017-04-04] MEDS ORDERED: CYAN1TAB24 (15:32)
[2017-04-04] MEDS ORDERED: OXYC-259 PO (15:32)
[2017-04-04] MEDS ORDERED: LACT1TAB14 (15:32)
[2017-04-04] MEDS ORDERED: HYDR-3111 PO (15:32)
== END 2016-11-12 15:22 | disposition home or self-care (01) ==
LOC: HOR 10:04 → INTOOBSV 13:16 → NEDA 13:16 → HOCB 15:10
PROVIDERS: ADMIT Hospitalist; ATTEND Hospitalist
DX: S60.941A Unspecified superficial injury of left index finger, initial encounter (principal); T70.4XXA Effects of high-pressure fluids, initial encounter; G43.909 Migraine, unspecified, not intractable, without status migrainosus; F12.90 Cannabis use, unspecified, uncomplicated; Z72.0 Tobacco use; Z01.810 Encounter for preprocedural cardiovascular examination; X58.XXXA Exposure to other specified factors, initial encounter
CPT/HCPCS: 01810; 26035; 71010; 73140; 80048; 80202; 83735; 85025; 85610; 85730; 93005; 96361; 96374; 96375; 99284; G0378; J0744; J1170; J2250; J2270; J2405; J3010; J3370; J7030; J7050; 76937